=== PATIENT | male | born 1985 | race Caucasian/White ===

== ENCOUNTER 2021-04-15 13:59 | Emergency (ER) | payer OTHER ==
[2021-04-15] MEDS ORDERED: Diphtheria,Pertussis(Acell),Tetanus Vaccine 0.5 ML Syringe IM ONE (14:10)
--- NOTE | 2021-04-15 14:14 | EDM.PDOC ---
ED HPI GENERAL MEDICAL PROBLEM - General Chief Complaint: Upper Extremity Injury/Pain Stated Complaint: hurt my hand Time Seen by Provider: 04/15/21 14:05 Source of Information: Reports: Patient History Limitations: Reports: No Limitations - History of Present Illness INITIAL COMMENTS - FREE TEXT/NARRATIVE: This patient is a 35 year old male that presents to the ER. 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 Patient reports pain at the right hand. Onset: Today Onset Date: 04/15/21 Onset Time: 09:00 Location: Reports: Upper Extremity, Right Front/Back Body Image: 1 - pain, swelling,tenderness. 2 - superficial avulsion skin Severity: Moderate Improves with: Reports: None Worsens with: Reports: None Associated Symptoms: Reports: No Other Symptoms - Related Data Allergies Allergy/AdvReac Type Severity Reaction Status Date / Time amoxicillin trihydrate Allergy Cannot Verified 01/30/16 11:01 [From Trimox] Remember cefaclor [From Ceclor] Allergy Cannot Verified 01/30/16 11:01 Remember Dairy Products Allergy Cannot Verified 01/30/16 11:01 Remember oxybutynin chloride Allergy Cannot Verified 01/30/16 11:01 [From Ditropan] Remember Home Meds: Home Meds Albuterol Sulfate 1 inh INH TID PRN 01/27/16 [History] Albuterol Sulfate [Proair Hfa] 1 inh INH TID 01/27/16 [History] Montelukast Sodium [Singulair] 1 tab PO BEDTIME 01/27/16 [History] Review of Systems - Review of Systems Review Of Systems: See Below Constitutional: Reports: No Symptoms Respiratory: Reports: No Symptoms Cardiovascular: Reports: No Symptoms Musculoskeletal: Reports: Hand Pain (swelling, pain. ) Skin: Reports: Wound (avulsion skin right hand) Neurological: Reports: No Symptoms Psychiatric: Reports: No Symptoms ED EXAM, GENERAL - Physical Exam Exam: See Below Exam Limited By: No Limitations General Appearance: Alert, WD/WN, No Apparent Distress Respiratory/Chest: No Respiratory Distress, Lungs Clear, Normal Breath Sounds, No Accessory Muscle Use Cardiovascular: Normal Peripheral Pulses, Regular Rate, Rhythm, No Edema Peripheral Pulses: 2+: Radial (L), Radial (R) Extremities: Normal Range of Motion, No Pedal Edema, Normal Capillary Refill, Other (pain, swelling, right hand dorsal side. Tenderness at 2nd metacarpal. ). No: Limited Range of Motion ED TRAUMA EXTREMITY PROCEDURES - Splinting Right Upper Extremity Splint Site: Right hand Pre-Procedure NV Status: Normal Post-Procedure NV Status: Normal Splint Material: Fiberglass Splint Design: Gutter (Radial), Other Applied & Form Fitted By: Provider Provider Post-Splint Application NV Check: NV Status Normal, Good Position Complications: No Progress/Comments: Wound under was cleaned with soap and NS rinse. Telfa nonstick dressing applied. Course - Orders/Labs/Meds Orders: Active Orders 24 hr Category Date Time Status Vaccines to be Administered [RC] PER UNIT ROUTINE Care 04/15/21 14:10 Active Hand Comp Min 3V Rt [CR] Stat Exams 04/15/21 14:10 Taken Meds: Medications Discontinued Medications Generic Name Dose Route Start Last Admin Trade Name Freq PRN Reason Stop Dose Admin Diphtheria/Tetanus/Acell Pertussis 0.5 ml 04/15/21 14:10 04/15/21 14:29 Diphtheria,Pertussis(Acell),Tetanus Vaccine 0.5 Ml Syringe IM 04/15/21 14:11 0.5 ml .ONCE ONE Administration - Radiology Interpretation Free Text/Narrative:: Right hand xray: no fracture, no FB, no dislocation Departure - Departure Time of Disposition: 15:07 Disposition: Home, Self-Care 01 Condition: Good Clinical Impression: Contusion, hand Qualifiers: Encounter type: initial encounter Laterality: right Qualified Code(s): S60.221A - Contusion of right hand, initial encounter Hand sprain Qualifiers: Encounter type: initial encounter Laterality: right Qualified Code(s): S63.91XA - Sprain of unspecified part of right wrist and hand, initial encounter - Discharge Information *PRESCRIPTION DRUG MONITORING PROGRAM REVIEWED*: Not Applicable *COPY OF PRESCRIPTION DRUG MONITORING REPORT IN PATIENT KYRIE: Not Applicable Instructions: Hand Contusion, [id number] Forms: ED Department Discharge Additional Instructions: Followup with your primary care provider in 7-10 days Return to the ER for worsening of condition or any emergent concerns Rest Ice Elevate Tylnol or Motrin for pain/swelling Splint in place as needed - My Orders Last 24 Hours: My Active Orders 04/15/21 14:10 Vaccines to be Administered [RC] PER UNIT ROUTINE Hand Comp Min 3V Rt [CR] Stat - Assessment/Plan Last 24 Hours: My Active Orders 04/15/21 14:10 Vaccines to be Administered [RC] PER UNIT ROUTINE Hand Comp Min 3V Rt [CR] Stat Plan: PLEASE SEE RN NOTE FOR PFSH
[2021-04-15 17:14] VITALS: BP 124/67; PULSE 77
== END 2021-04-15 15:18 | disposition home or self-care (01) ==
LOC: CC.ED 13:59
DX: S63.91XA Sprain of unspecified part of right wrist and hand, initial encounter (principal); Z88.0 Allergy status to penicillin; Z88.1 Allergy status to other antibiotic agents; Z91.011 Allergy to milk products; Z88.8 Allergy status to other drugs, medicaments and biological substances; Z79.899 Other long term (current) drug therapy; Z23 Encounter for immunization; W23.0XXA Caught, crushed, jammed, or pinched between moving objects, initial encounter
CPT/HCPCS: 73130-RT; 90471; 90715; 99283-25